=== PATIENT | male | born 1965 | race Caucasian/White ===

== ENCOUNTER 2016-09-25 11:28 | Inpatient (IN) | payer OTHER ==
[2016-09-25 13:02] VITALS: BMI 23.0
--- NOTE | 2016-09-25 15:41 | HP ---
COWS - Scale Resting Pulse: 1= [place] 81-100 Sweatin=Flushed/Facial Moisture Restless Observation: 1= Difficult to Sit Still Pupil Size: 1= Pupils >than Normal Bone or Joint Aches: 2= Severe Diffuse Aches Runny Nose/ Eye Tearin= Nasal Congestion GI Upset > 30mins: 1= Stomach Cramp Tremor Observation: 2= Slight Tremor Visible Yawning Observation: 0= None Anxiety or Irritability: 1=Feels Anxious/Irritable Goose Flesh Skin: 0=Smooth Skin COWS Score: 12 Admission ROS S - HPI Chief Complaint: i need help to stop using drugs Allergies/Adverse Reactions: Allergies Allergy/AdvReac Type Severity Reaction Status Date / Time sulfamethoxazole Allergy Unknown Verified 09/25/16 15:26 [From Bactrim] trimethoprim [From Bactrim] Allergy Unknown Verified 09/25/16 15:26 History of Present Illness: 51 y/o m pt with a h/o heroin dep. and cocaine abuse seeking detox. Exam Limitations: No Limitations - Ebola screening Have you traveled outside of the country in the last 21 days: No Have you had contact with anyone from an Ebola affected area: No Have you been sick,other than usual withdrawal symptoms: No Do you have a fever: No - Review of Systems Constitutional: Malaise, Night Sweats, Changes in sleep EENT: reports: Blurred Vision, Other (os lateral redness , itch) Respiratory: reports: No Symptoms reported Cardiac: reports: No Symptoms Reported GI: reports: Nausea, Abdominal cramping : reports: No Symptoms Reported Musculoskeletal: reports: Back Pain, Muscle Pain Integumentary: reports: No Symptoms Reported Neuro: reports: Numbness (hands osiel) Endocrine: reports: No Symptoms Reported Hematology: reports: No Symptoms Reported Psychiatric: reports: Agitated, Anxious, Depressed Other Systems: Reviewed and Negative Patient History - Patient Medical History Hx Anemia: No Hx Asthma: Yes (Pt is on MDI.) Hx Chronic Obstructive Pulmonary Disease (COPD): No Hx Cancer: No Hx Cardiac Disorders: No Hx Congestive Heart Failure: No Hx Hypertension: No Hx Hypercholesterolemia: No Hx Pacemaker: No HX Cerebrovascular Accident: No Hx Seizures: No Hx Dementia: No Hx Diabetes: No Hx Gastrointestinal Disorders: No Hx Liver Disease: No Hx Genitourinary Disorders: No Hx Sexually Transmitted Disorders: No Hx Renal Disease (ESRD): No Hx Thyroid Disease: No Hx Human Immunodeficiency Virus (HIV): Yes (2000) Hx Hepatitis C: No Hx Depression: Yes Hx Suicide Attempt: No Hx Bipolar Disorder: No Hx Schizophrenia: No - Patient Surgical History Past Surgical History: No - PPD History Previous Implant?: Yes Documented Results: Negative w/o proof Implanted On Prior R Admission?: No PPD to be Administered?: Yes - Reproductive History Patient is a Female of Child Bearing Age (11 -55 yrs old): No - Smoking Cessation Smoking history: Current every day smoker Have you smoked in the past 12 months: Yes Aproximately how many cigarettes per day: 10 Hx Chewing Tobacco Use: No Initiated information on smoking cessation: Yes 'Breaking Loose' booklet given: 09/25/16 - Substance & Tx. History Hx Alcohol Use: No Hx Substance Use: Yes Substance Use Type: Cocaine, Heroin Hx Substance Use Treatment: Yes - Substances Abused Heroin Route: Injection Frequency: Daily Amount used: 20 bags Age of first use: 15 Date of Last Use: 09/24/16 Cocaine Route: Injection Frequency: 1-2 times per week Amount used: 1 bag Age of first use: 15 Date of Last Use: 09/24/16 Family Disease History - Family Disease History Family Disease History: Other: Father (cva) Admission Physical Exam BHS - Vital Signs Vital Signs: Vital Signs - 24 hr 09/25/16 13:01 Temperature 97.5 F L Pulse Rate 72 Respiratory 18 Rate Blood Pressure 101/51 51 y/o m pt aox3 in nad ambulating anxious but cooperative with exam. - Physical General Appearance: Yes: No Apparent Distress, Appropriately Dressed, Irritable , Sweating, Anxious HEENTM: Yes: EOMI, Hearing grossly Normal, Normocephalic, Normal Voice, JULIANNE, Other (od with left lat redness) Respiratory: Yes: Chest Non-Tender, Lungs Clear, Normal Breath Sounds, No Respiratory Distress Neck: Yes: No masses,lesions,Nodules, Supple, Trachea in good position Breast: Yes: Breast Exam Deferred Cardiology: Yes: Within Normal Limits Abdominal: Yes: Non Tender, Flat, Increased Bowel Sounds Genitourinary: Yes: Frequency Back: Yes: Decreased Range of Motion Musculoskeletal: Yes: Back pain Extremities: Yes: Within Normal Limits Neurological: Yes: ethylbenzene oxidizer II-XII NML intact, Fully Oriented, Alert, Motor Strength 5/5, Normal Response Integumentary: Yes: Diaphoresis Lymphatic: Yes: Within Normal Limits - Diagnostic (1) Opioid dependence with uncomplicated intoxication Current Visit: Yes Status: Chronic (2) Cocaine abuse Current Visit: Yes Status: Chronic (3) Nicotine dependence Current Visit: Yes Status: Chronic Qualifiers: Nicotine product type: cigarettes Substance use status: uncomplicated Qualified Code(s): F17.210 - Nicotine dependence, cigarettes, uncomplicated (4) Conjunctivitis Current Visit: Yes Status: Acute Qualifiers: Conjunctivitis type: acute Acute conjunctivitis type: viral Laterality: left Qualified Code(s): B30.9 - Viral conjunctivitis, unspecified Cleared for Admission S - Detox or Rehab [facility] Level of Care: Medically Managed Detox Regimen/Protocol: Methadone [facility] Breath Alcohol Content Breath Alcohol Content: 0 Urine Drug Screen - Results Drug Screen Negative: No Urine Drug Screen Results: OTF-Cocaine, OPI-Opiates
[2016-09-25] MEDS ORDERED: diphenhydrAMINE HCL 50 MG CAPSULE PO PRN (15:58)
[2016-09-25] MEDS ORDERED: MAGNESIUM HYDROX 2400MG/30ML ORAL SUSPENSION 30 ML CUP PO PRN (15:58)
[2016-09-25] MEDS ORDERED: guaiFENesin/D-METHORPHAN HB 10 ML UNIT-DOSE CUPS PO PRN (15:58)
[2016-09-25] MEDS ORDERED: hydrOXYzine PAMOATE 25 MG CAPSULE (FP) PO PRN (15:58)
[2016-09-25] MEDS ORDERED: ACETAMINOPHEN 325 MG TABLET (FP) PO PRN (15:58)
[2016-09-25] MEDS ORDERED: MENTHOL/PHENOL 1 EACH UD MM PRN (15:58)
[2016-09-25] MEDS ORDERED: IBUPROFEN 400 MG TABLET (FP) PO PRN (15:58)
[2016-09-25] MEDS ORDERED: LOPERAMIDE HCL 2 MG CAPSULE PO PRN (15:58)
[2016-09-25] MEDS ORDERED: P-EPHED 60MG/TRIPROLIDI 2.5MG TABLET PO PRN (15:58)
[2016-09-25] MEDS ORDERED: MAGNESIUM CITRATE 300 ML BOTTLE PO PRN (15:58)
[2016-09-25] MEDS ORDERED: MAG HYDROX/AL HYDROX/SIMETH 30 ML UNIT-DOSE CUP PO PRN (15:58)
[2016-09-25] MEDS ORDERED: SULFACETAMIDE SODIUM 10% OPHTHALMIC DROPS 15 ML BOTTLE OS SCH (16:15)
[2016-09-25] MEDS ORDERED: METHADONE HCL 10 MG TABLET (FOR DETOX USE ONLY) PO ONE ×2 (17:00→23:00)
[2016-09-25] MEDS: NEOMYCIN/POLYMYX/HC OPHTHALMIC SUSPENSION 7.5 ML BOTTLE OS SCH ×2 (17:25→22:25)
[2016-09-25] MEDS: diazePAM 5 MG TABLET PO PRN (17:25)
[2016-09-25] MEDS: THIAMINE HCL 100 MG TABLET (FP) PO SCH (22:24)
[2016-09-25 23:37] LABS: URINE APPEARANCE CLEAR; URINE BILIRUBIN NEGATIVE (NEGATIVE); URINE BLOOD NEGATIVE (NEGATIVE); URINE COLOR AMBER; URINE GLUCOSE (UA) NEGATIVE (NEGATIVE); URINE KETONE NEGATIVE (NEGATIVE); URINE LEUK ESTERASE NEGATIVE (NEGATIVE); URINE NITRITE POSITIVE (NEGATIVE); URINE PROTEIN NEGATIVE (NEGATIVE); URINE UROBILINOGEN NEGATIVE E.U./dl (0.2-1.0)
[2016-09-25 23:44] LABS: URINE BACTERIA MODERATE /hpf (NONE SEEN); URINE MUCUS RARE; URINE RBC 1 /hpf (0-3); URINE WBC 1 /hpf (3-5)
[2016-09-26] MEDS: NEOMYCIN/POLYMYX/HC OPHTHALMIC SUSPENSION 7.5 ML BOTTLE OS SCH ×3 (05:36→22:30)
--- NOTE | 2016-09-26 09:20 | CONSULT ---
[facility] Psychiatric Consult - Data Date of interview: 09/26/16 Admission source: [facility] Identifying data: Mr Juarez is a 51 years old single male, father of 5 children, unemployed on SSI, domiciled living in [facility] subsidised housing seeking detox treatment for heroin and cocaine Substance Abuse History: - Smoking Cessation. Smoking history: Current every day smoker. Have you smoked in the past 12 months: Yes. Aproximately how many cigarettes per day: 10. Hx Chewing Tobacco Use: No. Initiated information on smoking cessation: Yes. 'Breaking Loose' booklet given: 09/25/16. - Substance & Tx. History. Hx Alcohol Use: No. Hx Substance Use: Yes. Substance Use Type : Cocaine, Heroin. Hx Substance Use Treatment: Yes. - Substances Abused. Heroin. Route: Injection. Frequency: Daily. Amount used: 20 bags. Age of first use: 15. Date of Last Use: 09/24/16. Cocaine. Route: Injection. Frequency: 1-2 times per week. Amount used: 1 bag. Age of first use: 15. Date of Last Use: 09/24/16 Medical History: Significant for Asthma, HIV+ diagnosed in 2000. Smokes 10 cigarettes daily Psychiatric History: Denies history of previous psychiatric treatment. However, reports experiencing difficulty to sleep at present Mental Status Exam - Mental Status Exam Alert and Oriented to: Time, Place, Person Cognitive Function: Fair Patient Appearance: Well Groomed Mood: Hopeful, Euthymic Affect: Appropriate Patient Behavior: Cooperative Speech Pattern: Clear Voice Loudness: Normal Thought Process: Intact, Goal Oriented Thought Disorder: Not Present Hallucinations: Denies Suicidal Ideation: Denies Homicidal Ideation: Denies Insight/Judgement: Poor Sleep: Poorly Appetite: Good Muscle strength/Tone: Normal Gait/Station: Normal Psychiatric Findings - Problem List ([place] 1, 2,3) (1) Substance-induced sleep disorder Current Visit: Yes Status: Acute (2) Opioid dependence with uncomplicated intoxication Current Visit: Yes Status: Chronic (3) Cocaine abuse Current Visit: Yes Status: Chronic (4) Nicotine dependence Current Visit: Yes Status: Chronic Qualifiers: Nicotine product type: cigarettes Substance use status: uncomplicated Qualified Code(s): F17.210 - Nicotine dependence, cigarettes, uncomplicated (5) Asthma Current Visit: Yes Status: Acute (6) HIV (human immunodeficiency virus infection) Current Visit: Yes Status: Acute - Initial Treatment Plan Initial Treatment Plan: Start Ambien 10 mg po HS prn for insomnia. Benefits vs Risks of medication discussed with patient and he agreed to try it
[2016-09-26 09:47] LABS: MCH 27.9 pg (25.7-33.7); MCHC 31.7 g/dl (32.0-35.9); MEAN PLT VOLUME 10.9 fl (7.5-11.1); PLATELET COUNT 114 K/MM3 (134-434); WHITE BLOOD COUNT 5.5 K/mm3 (4.0-10.0)
[2016-09-26] MEDS ORDERED: METHADONE HCL 10 MG TABLET (FOR DETOX USE ONLY) PO ONE (10:00)
[2016-09-26 10:36] LABS: ALBUMIN 3.6 g/dl (3.4-5.0); ALK PHOS 70 U/L (45-117); ANION GAP 11 (8-16); BILIRUBIN,TOTAL 0.4 mg/dL (0.2-1.0); CALCIUM 8.9 mg/dL (8.5-10.1); CO2 27 mmol/L (21-32); CREATININE 0.9 mg/dL (0.7-1.3); GLUCOSE,RANDOM 86 mg/dL (74-106); SGOT/AST 42 U/L (15-37); SGPT/ALT 36 U/L (12-78); TOT PROT 7.4 g/dl (6.4-8.2)
[2016-09-26] MEDS: PRENATAL VITAMINS W/ FOLIC ACID TABLET (FP) PO SCH (10:39)
[2016-09-26] MEDS: diazePAM 5 MG TABLET PO PRN ×2 (10:39→22:32)
[2016-09-26] MEDS: NICOTINE 21 MG/24 HOURS TOPICAL PATCH TD SCH (10:39)
--- NOTE | 2016-09-26 10:43 | PN ---
BHS COWS - Scale Resting Pulse: 0= [place] 80 or Below Sweatin= Chills/Flushing Restless Observation: 3= Extraneous Movement Pupil Size: 2= Moderately Dilated Bone or Joint Aches: 4=Acute Joint/Muscle Pain Runny Nose/ Eye Tearin= Nasal Congestion GI Upset > 30mins: 1= Stomach Cramp Tremor Observation of Outstretched Hands: 2= Slight Tremor Visible Yawning Observation: 2= >3x During Session Anxiety or Irritability: 2=Irritable/Anxious Goose Flesh Skin: 0=Smooth Skin COWS Score: 18 BHS Progress Note (SOAP) Subjective: ANXIETY,SWEATS,TREMORS,CHILLS. Objective: 09/26/16 10:44 Laboratory Last Values WBC 5.5 K/mm3 (4.0-10.0) 09/26/16 06:00 RBC 4.20 M/mm3 (4.00-5.60) 09/26/16 06:00 Hgb 11.7 GM/dL (11.7-16.9) 09/26/16 06:00 Hct 37.0 % (35.4-49) 09/26/16 06:00 MCV 88.0 fl (80-96) 09/26/16 06:00 MCHC 31.7 g/dl (32.0-35.9) L 09/26/16 06:00 RDW 13.0 % (11.9-15.9) 09/26/16 06:00 Plt Count 114 K/MM3 (134-434) L 09/26/16 06:00 MPV 10.9 fl (7.5-11.1) 09/26/16 06:00 Urine Color Nicole 09/25/16 23:20 Urine Appearance Clear 09/25/16 23:20 Urine pH 7.0 (5.0-8.0) 09/25/16 23:20 Ur Specific [place] 1.021 (1.001-1.035) 09/25/16 23:20 Urine Protein Negative (NEGATIVE) 09/25/16 23:20 Urine Glucose (UA) Negative (NEGATIVE) 09/25/16 23:20 Urine Ketones Negative (NEGATIVE) 09/25/16 23:20 Urine Blood Negative (NEGATIVE) 09/25/16 23:20 Urine Nitrite Positive (NEGATIVE) 09/25/16 23:20 Urine Bilirubin Negative (NEGATIVE) 09/25/16 23:20 Urine Urobilinogen Negative E.U./dl (0.2-1.0) 09/25/16 23:20 Ur Leukocyte Esterase Negative (NEGATIVE) 09/25/16 23:20 Urine RBC 1 /hpf (0-3) 09/25/16 23:20 Urine WBC 1 /hpf (3-5) 09/25/16 23:20 Urine Bacteria Moderate /hpf (NONE SEEN) 09/25/16 23:20 Urine Mucus Rare 09/25/16 23:20 Vital Signs Temperature 98.2 F 09/26/16 10:07 Pulse Rate 73 09/26/16 10:07 Respiratory Rate 18 09/26/16 10:07 Blood Pressure 112/74 09/26/16 10:07 O2 Sat by Pulse Oximetry (%) Assessment: 09/26/16 10:44 WITHDRAWAL SX Plan: CONTINUE DETOX
[2016-09-26] MEDS: ZOLPIDEM TARTRATE 10 MG TABLET (PARK CARE ONLY) PO PRN (22:32)
[2016-09-26] MEDS: THIAMINE HCL 100 MG TABLET (FP) PO SCH (22:33)
--- NOTE | 2016-09-26 23:39 | EKG ---
Test Reason : Blood Pressure : / mmHG Vent. Rate : 069 BPM Atrial Rate : 075 BPM P-R Int : 130 ms QRS Dur : 080 ms QT Int : 364 ms P-R-T Axes : 065 -48 051 degrees QTc Int : 390 ms NORMAL SINUS RHYTHM LEFT AXIS DEVIATION ABNORMAL ECG NO PREVIOUS ECGS AVAILABLE Confirmed by JONO RICCI MD ([id number]) on 09/26/2016 11:39:11 PM Referred By: Confirmed By:JONO RICCI MD
[2016-09-27] MEDS: diazePAM 5 MG TABLET PO PRN ×2 (05:46→22:30)
[2016-09-27] MEDS: NEOMYCIN/POLYMYX/HC OPHTHALMIC SUSPENSION 7.5 ML BOTTLE OS SCH ×3 (05:48→22:29)
[2016-09-27] MEDS ORDERED: METHADONE HCL 5 MG TABLET (FOR DETOX USE ONLY) PO ONE (10:00)
[2016-09-27] MEDS: PRENATAL VITAMINS W/ FOLIC ACID TABLET (FP) PO SCH (10:30)
[2016-09-27] MEDS: NICOTINE 21 MG/24 HOURS TOPICAL PATCH TD SCH (10:30)
--- NOTE | 2016-09-27 11:23 | PN ---
[facility] CIWA - CIWA Score Nausea/Vomitin-No Nausea/No Vomiting Muscle Tremors: 4-Moderate,w/Arms Extend Anxiety: 4-Mod. Anxious/Guarded Agitation: 4-Moderately Restless Paroxysmal Sweats: 1-Minimal Palms Moist Orientation: 0-Oriented Tacttile Disturbances: 3-Moderate Itch/Numb/Burn Auditory Disturbances: 0-None Visual Disturbances: 0-None Headache: 0-None Present CIWA-Ar Total Score: 16 BHS Progress Note (SOAP) Subjective: ANXIETY,SWEATS,IRRITABILITY,AGITATION,INTERMITTENT SLEEP. Objective: 09/27/16 11:23 Vital Signs Temperature 96.8 F L 09/27/16 09:41 Pulse Rate 74 09/27/16 09:41 Respiratory Rate 18 09/27/16 09:41 Blood Pressure 128/75 09/27/16 09:41 O2 Sat by Pulse Oximetry (%) Laboratory Last Values WBC 5.5 K/mm3 (4.0-10.0) 09/26/16 06:00 RBC 4.20 M/mm3 (4.00-5.60) 09/26/16 06:00 Hgb 11.7 GM/dL (11.7-16.9) 09/26/16 06:00 Hct 37.0 % (35.4-49) 09/26/16 06:00 MCV 88.0 fl (80-96) 09/26/16 06:00 MCHC 31.7 g/dl (32.0-35.9) L 09/26/16 06:00 RDW 13.0 % (11.9-15.9) 09/26/16 06:00 Plt Count 114 K/MM3 (134-434) L 09/26/16 06:00 MPV 10.9 fl (7.5-11.1) 09/26/16 06:00 Sodium 139 mmol/L (136-145) 09/26/16 06:00 Potassium 4.3 mmol/L (3.5-5.1) 09/26/16 06:00 Chloride 101 mmol/L (98-107) 09/26/16 06:00 Carbon Dioxide 27 mmol/L (21-32) 09/26/16 06:00 Anion Gap 11 (8-16) 09/26/16 06:00 BUN 9 mg/dL (7-18) 09/26/16 06:00 Creatinine 0.9 mg/dL (0.7-1.3) 09/26/16 06:00 Creat Clearance w eGFR > 60 (>60) 09/26/16 06:00 Random Glucose 86 mg/dL (74-106) 09/26/16 06:00 Calcium 8.9 mg/dL (8.5-10.1) 09/26/16 06:00 Total Bilirubin 0.4 mg/dL (0.2-1.0) 09/26/16 06:00 AST 42 U/L (15-37) H 09/26/16 06:00 ALT 36 U/L (12-78) 09/26/16 06:00 Alkaline Phosphatase 70 U/L (45-117) 09/26/16 06:00 Total Protein 7.4 g/dl (6.4-8.2) 09/26/16 06:00 Albumin 3.6 g/dl (3.4-5.0) 09/26/16 06:00 Urine Color Nicole 09/25/16 23:20 Urine Appearance Clear 09/25/16 23:20 Urine pH 7.0 (5.0-8.0) 09/25/16 23:20 Ur Specific [place] 1.021 (1.001-1.035) 09/25/16 23:20 Urine Protein Negative (NEGATIVE) 09/25/16 23:20 Urine Glucose (UA) Negative (NEGATIVE) 09/25/16 23:20 Urine Ketones Negative (NEGATIVE) 09/25/16 23:20 Urine Blood Negative (NEGATIVE) 09/25/16 23:20 Urine Nitrite Positive (NEGATIVE) 09/25/16 23:20 Urine Bilirubin Negative (NEGATIVE) 09/25/16 23:20 Urine Urobilinogen Negative E.U./dl (0.2-1.0) 09/25/16 23:20 Ur Leukocyte Esterase Negative (NEGATIVE) 09/25/16 23:20 Urine RBC 1 /hpf (0-3) 09/25/16 23:20 Urine WBC 1 /hpf (3-5) 09/25/16 23:20 Urine Bacteria Moderate /hpf (NONE SEEN) 09/25/16 23:20 Urine Mucus Rare 09/25/16 23:20 RPR Titer Nonreactive (NONREACTIVE) 09/26/16 06:00 Assessment: 09/27/16 11:23 WITHDRAWAL SX Plan: CONTINUE DETOX
[2016-09-27] MEDS ORDERED: ALBUTEROL SO4 6.7 GM HFA INHALER IH PRN (13:25)
[2016-09-27] MEDS: ZOLPIDEM TARTRATE 10 MG TABLET (PARK CARE ONLY) PO PRN (22:30)
[2016-09-27] MEDS: THIAMINE HCL 100 MG TABLET (FP) PO SCH (22:30)
[2016-09-28] MEDS: diazePAM 5 MG TABLET PO PRN (06:00)
[2016-09-28] MEDS: NEOMYCIN/POLYMYX/HC OPHTHALMIC SUSPENSION 7.5 ML BOTTLE OS SCH (06:01)
[2016-09-28 06:36] VITALS: BP 112/74; PULSE 81; TEMP 96.5
[2016-09-28] MEDS ORDERED: METHADONE HCL 5 MG TABLET (FOR DETOX USE ONLY) PO ONE (10:00)
[2016-09-28] MEDS ORDERED: METHADONE HCL 10 MG TABLET (FOR DETOX USE ONLY) PO ONE (10:00)
--- NOTE | 2016-09-28 12:09 | DS ---
[facility] Detox Discharge Summary Admission Date: 09/25/16 Discharge Date: 09/28/16 - History Present History: Cocaine Dependence, Opioid Dependence Additional Comments: ADVISED PATIENT TO FOLLOW-UP WITH [facility] FOR GENERAL MEDICAL ASSESSMENT. Pertinent Past History: Asthma, HIV +, Depression. - Physical Exam Results Vital Signs: Vital Signs Temperature 96.5 F L 09/28/16 06:36 Pulse Rate 81 09/28/16 06:36 Respiratory Rate 18 09/28/16 06:36 Blood Pressure 112/74 09/28/16 06:36 O2 Sat by Pulse Oximetry (%) Pertinent Admission Physical Exam Findings: WITHDRAWAL SYMPTOMS. Laboratory Last Values WBC 5.5 K/mm3 (4.0-10.0) 09/26/16 06:00 RBC 4.20 M/mm3 (4.00-5.60) 09/26/16 06:00 Hgb 11.7 GM/dL (11.7-16.9) 09/26/16 06:00 Hct 37.0 % (35.4-49) 09/26/16 06:00 MCV 88.0 fl (80-96) 09/26/16 06:00 MCHC 31.7 g/dl (32.0-35.9) L 09/26/16 06:00 RDW 13.0 % (11.9-15.9) 09/26/16 06:00 Plt Count 114 K/MM3 (134-434) L 09/26/16 06:00 MPV 10.9 fl (7.5-11.1) 09/26/16 06:00 Sodium 139 mmol/L (136-145) 09/26/16 06:00 Potassium 4.3 mmol/L (3.5-5.1) 09/26/16 06:00 Chloride 101 mmol/L (98-107) 09/26/16 06:00 Carbon Dioxide 27 mmol/L (21-32) 09/26/16 06:00 Anion Gap 11 (8-16) 09/26/16 06:00 BUN 9 mg/dL (7-18) 09/26/16 06:00 Creatinine 0.9 mg/dL (0.7-1.3) 09/26/16 06:00 Creat Clearance w eGFR > 60 (>60) 09/26/16 06:00 Random Glucose 86 mg/dL (74-106) 09/26/16 06:00 Calcium 8.9 mg/dL (8.5-10.1) 09/26/16 06:00 Total Bilirubin 0.4 mg/dL (0.2-1.0) 09/26/16 06:00 AST 42 U/L (15-37) H 09/26/16 06:00 ALT 36 U/L (12-78) 09/26/16 06:00 Alkaline Phosphatase 70 U/L (45-117) 09/26/16 06:00 Total Protein 7.4 g/dl (6.4-8.2) 09/26/16 06:00 Albumin 3.6 g/dl (3.4-5.0) 09/26/16 06:00 Urine Color Nicole 09/25/16 23:20 Urine Appearance Clear 09/25/16 23:20 Urine pH 7.0 (5.0-8.0) 09/25/16 23:20 Ur Specific [place] 1.021 (1.001-1.035) 09/25/16 23:20 Urine Protein Negative (NEGATIVE) 09/25/16 23:20 Urine Glucose (UA) Negative (NEGATIVE) 09/25/16 23:20 Urine Ketones Negative (NEGATIVE) 09/25/16 23:20 Urine Blood Negative (NEGATIVE) 09/25/16 23:20 Urine Nitrite Positive (NEGATIVE) 09/25/16 23:20 Urine Bilirubin Negative (NEGATIVE) 09/25/16 23:20 Urine Urobilinogen Negative E.U./dl (0.2-1.0) 09/25/16 23:20 Ur Leukocyte Esterase Negative (NEGATIVE) 09/25/16 23:20 Urine RBC 1 /hpf (0-3) 09/25/16 23:20 Urine WBC 1 /hpf (3-5) 09/25/16 23:20 Urine Bacteria Moderate /hpf (NONE SEEN) 09/25/16 23:20 Urine Mucus Rare 09/25/16 23:20 RPR Titer Nonreactive (NONREACTIVE) 09/26/16 06:00 LABS NOTED. - Treatment Hospital Course: Detoxed Safely - Medication Discharge Medications: Ambulatory Orders Albuterol Sulfate Inhaler - [Ventolin Hfa Inhaler -] 2 inh PO Q4H PRN 09/25/16 - Diagnosis (1) Asthma Status: Chronic Qualifiers: Asthma severity: mild intermittent Asthma complication type: uncomplicated Qualified Code(s): J45.20 - Mild intermittent asthma, uncomplicated (2) Conjunctivitis Status: Acute Qualifiers: Conjunctivitis type: acute Acute conjunctivitis type: viral Laterality: left Qualified Code(s): B30.9 - Viral conjunctivitis, unspecified (3) HIV (human immunodeficiency virus infection) Status: Chronic (4) Substance-induced sleep disorder Status: Acute (5) Cocaine abuse Status: Acute (6) Nicotine dependence Status: Chronic Qualifiers: Nicotine product type: cigarettes Substance use status: uncomplicated Qualified Code(s): F17.210 - Nicotine dependence, cigarettes, uncomplicated (7) Opioid dependence with uncomplicated intoxication Status: Acute - AMA Did Patient Leave Against Medical Advice: Yes (PT. HAD PERSONAL MATTER TO ATTEND TO AND COULD NOT STAY TO COMPLETE DETOX.)
[2016-09-29] MEDS ORDERED: METHADONE HCL 5 MG TABLET (FOR DETOX USE ONLY) PO ONE (06:00)
[2016-09-29] MEDS ORDERED: METHADONE HCL 10 MG TABLET (FOR DETOX USE ONLY) PO ONE (10:00)
[2016-09-30] MEDS ORDERED: METHADONE HCL 5 MG TABLET (FOR DETOX USE ONLY) PO ONE (06:00)
== END 2016-09-28 08:57 | disposition left against medical advice (07) | DRG 770 ==
LOC: YASAS 11:28 → Y3N 16:37
PROVIDERS: ADMIT Internal Medicine; ATTEND Internal Medicine
PROC: HZ2ZZZZ Detoxification Services for Substance Abuse Treatment (ICD-10-PCS; principal; 2016-09-28)
DX: F11.20 Opioid dependence, uncomplicated (principal); F14.10 Cocaine abuse, uncomplicated; F17.210 Nicotine dependence, cigarettes, uncomplicated; F19.280 Other psychoactive substance dependence with psychoactive substance-induced anxiety disorder; J45.20 Mild intermittent asthma, uncomplicated; B30.9 Viral conjunctivitis, unspecified; Z21 Asymptomatic human immunodeficiency virus [HIV] infection status
CPT/HCPCS: 36415; 80053; 81003; 81015; 85027; 86593; 93005; 93010

== ENCOUNTER 2017-02-09 08:24 | Inpatient (IN) | payer OTHER ==
--- NOTE | 2017-02-09 12:43 | HP ---
COWS - Scale Resting Pulse: 0= [place] 80 or Below Sweatin=Flushed/Facial Moisture Restless Observation: 1= Difficult to Sit Still Pupil Size: 0= Normal to Room Light Bone or Joint Aches: 2= Severe Diffuse Aches Runny Nose/ Eye Tearin= Runny Nose/Eyes GI Upset > 30mins: 1= Stomach Cramp Tremor Observation: 2= Slight Tremor Visible Yawning Observation: 2= >3x During Session Anxiety or Irritability: 2=Irritable/Anxious Goose Flesh Skin: 3=Piloerection COWS Score: 17 Admission ROS S - HPI Chief Complaint: I want to change and start new. Allergies/Adverse Reactions: Allergies Allergy/AdvReac Type Severity Reaction Status Date / Time sulfamethoxazole Allergy Unknown Verified 02/09/17 11:18 [From Bactrim] trimethoprim [From Bactrim] Allergy Unknown Verified 02/09/17 11:18 History of Present Illness: pt is a 52yr old male with a history of heroin and cocaine dependence seeking detox for treatment. pt also has been HIV+ since 2000 and currently on gynoya and pt brought in his own. pt had a cut to right thumb 4 days ago now he has redness to hand and cut appears to have some drainage. Exam Limitations: No Limitations - Ebola screening Have you traveled outside of the country in the last 21 days: No Have you had contact with anyone from an Ebola affected area: No Have you been sick,other than usual withdrawal symptoms: No - Review of Systems Constitutional: Chills, Diaphoresis, Loss of Appetite, Night Sweats, Changes in sleep, Unintentional Wgt. Loss EENT: reports: Tearing, Nose Congestion Respiratory: reports: No Symptoms reported Cardiac: reports: No Symptoms Reported GI: reports: Constipated, Diarrhea, Poor Appetite, Poor Fluid Intake : reports: No Symptoms Reported Musculoskeletal: reports: Back Pain, Muscle Pain, Other (right hand infection d/ t cut to thumb pt never had this addressed.) Integumentary: reports: Flushing, Sweating Neuro: reports: Tingling, Tremors Endocrine: reports: Excessive Sweating, Flushing, Intolerance to Cold, Intolerance to Heat Hematology: reports: No Symptoms Reported Psychiatric: reports: Judgement Intact, Mood/Affect Appropiate, Orientated x3, Agitated, Anxious Other Systems: Reviewed and Negative Patient History - Patient Medical History Hx Anemia: No Hx Asthma: Yes (Pt is on MDI.) Hx Chronic Obstructive Pulmonary Disease (COPD): No Hx Cancer: No Hx Cardiac Disorders: No Hx Congestive Heart Failure: No Hx Hypertension: No Hx Hypercholesterolemia: No Hx Pacemaker: No HX Cerebrovascular Accident: No Hx Seizures: No Hx Dementia: No Hx Diabetes: No Hx Gastrointestinal Disorders: No Hx Liver Disease: No Hx Genitourinary Disorders: No Hx Sexually Transmitted Disorders: No Hx Renal Disease (ESRD): No Hx Thyroid Disease: No Hx Human Immunodeficiency Virus (HIV): Yes (2000) Hx Hepatitis C: Yes (never been treated) Hx Depression: No Hx Suicide Attempt: No (denies) Hx Bipolar Disorder: No Hx Schizophrenia: No - Patient Surgical History Past Surgical History: No - PPD History Previous Implant?: Yes Documented Results: Negative w/proof Implanted On Prior [facility] Admission?: Yes Date: 09/27/16 Results: 0 MM PPD to be Administered?: No - Reproductive History Patient is a Female of Child Bearing Age (11 -55 yrs old): No - Smoking Cessation Smoking history: Current every day smoker Have you smoked in the past 12 months: Yes Aproximately how many cigarettes per day: 10 Hx Chewing Tobacco Use: No Initiated information on smoking cessation: Yes 'Breaking Loose' booklet given: 02/09/17 - Substance & Tx. History Hx Alcohol Use: No Hx Substance Use: Yes Substance Use Type: Cocaine, Heroin Hx Substance Use Treatment: Yes (last detox 09/2016 at [facility]) - Substances Abused Heroin Route: Injection Frequency: Daily Amount used: 12-13 BAGS Age of first use: 15 Date of Last Use: 02/08/17 Cocaine Route: Injection Frequency: Daily Amount used: 2-3 BAGS Age of first use: 15 Date of Last Use: 02/08/17 Family Disease History - Family Disease History Family Disease History: Other: Father (cva) Admission Physical Exam BHS - Vital Signs Vital Signs: Vital Signs - 24 hr 02/09/17 02/09/17 09:23 09:35 Temperature 97.0 F L 98.3 F Pulse Rate 60 70 Respiratory 16 18 Rate Blood Pressure 100/60 150/97 - Physical General Appearance: Yes: Appropriately Dressed, Moderate Distress, Tremorous, Irritable, Sweating, Anxious HEENTM: Yes: Hearing grossly Normal, Normal Voice, Hearing Decreased, Nasal Congestion Respiratory: Yes: Lungs Clear, Normal Breath Sounds, No Respiratory Distress Neck: Yes: No masses,lesions,Nodules Breast: Yes: Within Normal Limits Cardiology: Yes: Regular Rhythm, Regular Rate, S1, S2 Abdominal: Yes: Within Normal Limits, Normal Bowel Sounds, Soft Genitourinary: Yes: Within Normal Limits Back: Yes: Normal Inspection Musculoskeletal: Yes: full range of Motion, Gait Steady, Joint Stiffness Extremities: Yes: Normal Capillary Refill, Non-Tender, Tremors Neurological: Yes: Fully Oriented, Alert, Normal Response Integumentary: Yes: Track To, Other (cut to right thumb 4 days ago and now area appears infected and redness noted to top of hand. pt denies of any pain at this time.) Lymphatic: Yes: Within Normal Limits - Diagnostic (1) Opioid dependence with uncomplicated intoxication Current Visit: Yes Status: Chronic (2) Asthma Current Visit: Yes Status: Chronic Qualifiers: Asthma severity: mild intermittent Asthma complication type: uncomplicated Qualified Code(s): J45.20 - Mild intermittent asthma, uncomplicated (3) HIV (human immunodeficiency virus infection) Current Visit: Yes Status: Chronic (4) Nicotine dependence Current Visit: Yes Status: Chronic Qualifiers: Nicotine product type: cigarettes Substance use status: uncomplicated Qualified Code(s): F17.210 - Nicotine dependence, cigarettes, uncomplicated (5) Cellulitis of hand Current Visit: Yes Status: Acute Comment: redness/warm to touch to top of hand (6) Cut of finger Current Visit: Yes Status: Acute Comment: open cut with drainage to thumb. pt states he cut his finger with a bottle. BHS Breath Alcohol Content Breath Alcohol Content: 0.129 Urine Drug Screen - Results Drug Screen Negative: No Urine Drug Screen Results: BZO-Benzodiazepines
[2017-02-09] MEDS ORDERED: MAGNESIUM HYDROX 2400MG/30ML ORAL SUSPENSION 30 ML CUP PO PRN (13:02)
[2017-02-09] MEDS ORDERED: ACETAMINOPHEN 325 MG TABLET (FP) PO PRN (13:02)
[2017-02-09] MEDS ORDERED: IBUPROFEN 400 MG TABLET (FP) PO PRN (13:02)
[2017-02-09] MEDS ORDERED: MENTHOL/PHENOL 1 EACH UD MM PRN (13:02)
[2017-02-09] MEDS ORDERED: MAG HYDROX/AL HYDROX/SIMETH 30 ML UNIT-DOSE CUP PO PRN (13:02)
[2017-02-09] MEDS ORDERED: MAGNESIUM CITRATE 300 ML BOTTLE PO PRN (13:02)
[2017-02-09] MEDS ORDERED: P-EPHED 60MG/TRIPROLIDI 2.5MG TABLET PO PRN (13:02)
[2017-02-09] MEDS ORDERED: LOPERAMIDE HCL 2 MG CAPSULE PO PRN (13:02)
[2017-02-09] MEDS ORDERED: diphenhydrAMINE HCL 50 MG CAPSULE PO PRN (13:02)
[2017-02-09] MEDS ORDERED: guaiFENesin/D-METHORPHAN HB 10 ML UNIT-DOSE CUPS PO PRN (13:02)
[2017-02-09] MEDS ORDERED: NICOTINE POLACRILEX 4 MG GUM BUC PRN (13:08)
[2017-02-09] MEDS ORDERED: hydrOXYzine PAMOATE 50 MG CAPSULE (FP) PO PRN (13:08)
[2017-02-09] MEDS ORDERED: ALBUTEROL SO4 6.7 GM HFA INHALER IH PRN (13:23)
[2017-02-09 13:26] VITALS: BMI 20.3
[2017-02-09] MEDS ORDERED: METHADONE HCL 10 MG TABLET (FOR DETOX USE ONLY) PO ONE ×2 (14:09→23:00)
[2017-02-09] MEDS: CEPHALEXIN MONOHYDRATE 500 MG CAPSULE (UD) PO SCH ×2 (15:09→22:33)
[2017-02-09] MEDS: diazePAM 5 MG TABLET PO PRN ×2 (15:09→22:32)
[2017-02-09] MEDS: BACITRACIN 0.9 GM PACKET TP SCH ×2 (15:10→22:33)
[2017-02-09 16:59] LABS: URINE APPEARANCE CLEAR; URINE BILIRUBIN NEGATIVE (NEGATIVE); URINE BLOOD NEGATIVE (NEGATIVE); URINE COLOR YELLOW; URINE GLUCOSE (UA) NEGATIVE (NEGATIVE); URINE KETONE NEGATIVE (NEGATIVE); URINE LEUK ESTERASE NEGATIVE (NEGATIVE); URINE NITRITE NEGATIVE (NEGATIVE); URINE PROTEIN NEGATIVE (NEGATIVE)
[2017-02-09] MEDS: THIAMINE HCL 100 MG TABLET (FP) PO SCH (22:33)
[2017-02-10] MEDS: diazePAM 5 MG TABLET PO PRN ×3 (05:55→22:35)
[2017-02-10] MEDS ORDERED: METHADONE HCL 10 MG TABLET (FOR DETOX USE ONLY) PO ONE (10:00)
[2017-02-10] MEDS: BACITRACIN 0.9 GM PACKET TP SCH ×2 (10:43→22:33)
[2017-02-10] MEDS: CEPHALEXIN MONOHYDRATE 500 MG CAPSULE (UD) PO SCH ×2 (10:44→22:33)
[2017-02-10] MEDS: PRENATAL VITAMINS W/ FOLIC ACID TABLET (FP) PO SCH (10:44)
[2017-02-10] MEDS: PATIENT'S OWN MEDICATION (NON-FORMULARY) (Fluconazole [Fluconazole] 200 MG) PO SCH (10:44)
[2017-02-10] MEDS: NICOTINE 21 MG/24 HOURS TOPICAL PATCH TD SCH (10:49)
[2017-02-10 11:09] LABS: MCH 29.7 pg (25.7-33.7); MEAN CELL VOLUME 89.8 fl (80-96); MEAN PLT VOLUME 9.7 fl (7.5-11.1); PLATELET COUNT 220 K/MM3 (134-434); RDW 15.4 % (11.9-15.9); WHITE BLOOD COUNT 7.4 K/mm3 (4.0-10.0)
[2017-02-10 11:28] LABS: ALBUMIN 3.3 g/dl (3.4-5.0); ALK PHOS 68 U/L (45-117); ANION GAP 7 (8-16); BILIRUBIN,TOTAL 0.8 mg/dL (0.2-1.0); CALCIUM 8.7 mg/dL (8.5-10.1); CO2 31 mmol/L (21-32); CREATININE 0.9 mg/dL (0.7-1.3); GLUCOSE,RANDOM 65 mg/dL (74-106); SGOT/AST 26 U/L (15-37); SGPT/ALT 28 U/L (12-78); TOT PROT 6.9 g/dl (6.4-8.2)
--- NOTE | 2017-02-10 18:45 | EKG ---
Test Reason : Blood Pressure : / mmHG Vent. Rate : 059 BPM Atrial Rate : 059 BPM P-R Int : 122 ms QRS Dur : 084 ms QT Int : 418 ms P-R-T Axes : 073 -36 063 degrees QTc Int : 413 ms SINUS BRADYCARDIA LEFT AXIS DEVIATION ABNORMAL ECG WHEN COMPARED WITH ECG OF 25-SEP-2016 16:30, NO SIGNIFICANT CHANGE WAS FOUND Confirmed by AMY CAN MD ([id number]) on 02/10/2017 6:45:05 PM Referred By: Confirmed By:AMY CAN MD
[2017-02-10] MEDS ORDERED: ONDANSETRON *ODT* 4 MG TABLET SL PRN (20:04)
--- NOTE | 2017-02-10 20:04 | PN ---
S COWS - Scale Resting Pulse: 0= [place] 80 or Below Sweatin= Chills/Flushing Restless Observation: 1= Difficult to Sit Still Pupil Size: 0= Normal to Room Light Bone or Joint Aches: 2= Severe Diffuse Aches Runny Nose/ Eye Tearin= Nasal Congestion GI Upset > 30mins: 3= Vomiting/Diarrhea Tremor Observation of Outstretched Hands: 2= Slight Tremor Visible Yawning Observation: 1= 1-2x During Session Anxiety or Irritability: 2=Irritable/Anxious Goose Flesh Skin: 3=Piloerection COWS Score: 16 S Progress Note (SOAP) Subjective: Sweating, Diarrhea, Vomiting, H/A, Body Aches, Interrupted Sleep. Objective: PT. A & O X 3. NO ACUTE DISTRESS. 02/10/17 20:03 Vital Signs Temperature 98.0 F 02/10/17 18:56 Pulse Rate 68 02/10/17 18:56 Respiratory Rate 18 02/10/17 18:56 Blood Pressure 123/68 02/10/17 18:56 O2 Sat by Pulse Oximetry (%) Laboratory Tests 02/09/17 02/10/17 02/10/17 15:00 06:10 06:10 WBC 7.4 D RBC 4.01 Hgb 11.9 Hct 36.0 MCV 89.8 MCH 29.7 MCHC 33.0 RDW 15.4 D Plt Count 220 D MPV 9.7 D Sodium 141 Potassium 3.6 Chloride 103 Carbon Dioxide 31 Anion Gap 7 L BUN 11 D Creatinine 0.9 Creat Clearance w eGFR > 60 Random Glucose 65 L D Calcium 8.7 Total Bilirubin 0.8 D AST 26 D ALT 28 D Alkaline Phosphatase 68 Total Protein 6.9 Albumin 3.3 L Urine Color Yellow Urine Appearance Clear Urine pH 7.0 Ur Specific [place] 1.020 Urine Protein Negative Urine Glucose (UA) Negative Urine Ketones Negative Urine Blood Negative Urine Nitrite Negative Urine Bilirubin Negative Urine Urobilinogen 2.0 Ur Leukocyte Esterase Negative RPR Titer 02/10/17 06:10 WBC RBC Hgb Hct MCV MCH MCHC RDW Plt Count MPV Sodium Potassium Chloride Carbon Dioxide Anion Gap BUN Creatinine Creat Clearance w eGFR Random Glucose Calcium Total Bilirubin AST ALT Alkaline Phosphatase Total Protein Albumin Urine Color Urine Appearance Urine pH Ur Specific [place] Urine Protein Urine Glucose (UA) Urine Ketones Urine Blood Urine Nitrite Urine Bilirubin Urine Urobilinogen Ur Leukocyte Esterase RPR Titer Nonreactive LABS NOTED. Assessment: 02/10/17 20:03 WITHDRAWAL SYMPTOMS. Plan: CONTINUED DETOX. PRN ZOFRAN FOR VOMITING. PRN IMMODIUM FOR DIARRHEA.
[2017-02-10] MEDS: THIAMINE HCL 100 MG TABLET (FP) PO SCH (22:33)
[2017-02-11] MEDS: diazePAM 5 MG TABLET PO PRN ×3 (05:50→22:18)
[2017-02-11] MEDS ORDERED: METHADONE HCL 5 MG TABLET (FOR DETOX USE ONLY) PO ONE (10:00)
[2017-02-11] MEDS: PATIENT'S OWN MEDICATION (NON-FORMULARY) (Fluconazole [Fluconazole] 200 MG) PO SCH (10:20)
[2017-02-11] MEDS: PRENATAL VITAMINS W/ FOLIC ACID TABLET (FP) PO SCH (10:21)
[2017-02-11] MEDS: CEPHALEXIN MONOHYDRATE 500 MG CAPSULE (UD) PO SCH ×2 (10:21→22:16)
[2017-02-11] MEDS: NICOTINE 21 MG/24 HOURS TOPICAL PATCH TD SCH (10:21)
[2017-02-11] MEDS: BACITRACIN 0.9 GM PACKET TP SCH ×2 (10:22→22:16)
--- NOTE | 2017-02-11 15:42 | PN ---
[facility] COWS - Scale Resting Pulse: 1= [place] 81-100 Sweatin= Chills/Flushing Restless Observation: 3= Extraneous Movement Pupil Size: 0= Normal to Room Light Bone or Joint Aches: 2= Severe Diffuse Aches Runny Nose/ Eye Tearin= Runny Nose/Eyes GI Upset > 30mins: 1= Stomach Cramp Tremor Observation of Outstretched Hands: 2= Slight Tremor Visible Yawning Observation: 1= 1-2x During Session Anxiety or Irritability: 2=Irritable/Anxious Goose Flesh Skin: 0=Smooth Skin COWS Score: 15 [facility] Progress Note (SOAP) Subjective: Anxious, irritable, restless, interrupted sleep Objective: 02/11/17 15:41 Last Vital Signs Temp Pulse Resp BP Pulse Ox 97.7 F 85 18 126/76 02/11/17 13:45 02/11/17 13:45 02/11/17 13:45 02/11/17 13:45 Laboratory Tests 02/09/17 02/10/17 02/10/17 15:00 06:10 06:10 WBC 7.4 D RBC 4.01 Hgb 11.9 Hct 36.0 MCV 89.8 MCH 29.7 MCHC 33.0 RDW 15.4 D Plt Count 220 D MPV 9.7 D Sodium 141 Potassium 3.6 Chloride 103 Carbon Dioxide 31 Anion Gap 7 L BUN 11 D Creatinine 0.9 Creat Clearance w eGFR > 60 Random Glucose 65 L D Calcium 8.7 Total Bilirubin 0.8 D AST 26 D ALT 28 D Alkaline Phosphatase 68 Total Protein 6.9 Albumin 3.3 L Urine Color Yellow Urine Appearance Clear Urine pH 7.0 Ur Specific [place] 1.020 Urine Protein Negative Urine Glucose (UA) Negative Urine Ketones Negative Urine Blood Negative Urine Nitrite Negative Urine Bilirubin Negative Urine Urobilinogen 2.0 Ur Leukocyte Esterase Negative RPR Titer 02/10/17 06:10 WBC RBC Hgb Hct MCV MCH MCHC RDW Plt Count MPV Sodium Potassium Chloride Carbon Dioxide Anion Gap BUN Creatinine Creat Clearance w eGFR Random Glucose Calcium Total Bilirubin AST ALT Alkaline Phosphatase Total Protein Albumin Urine Color Urine Appearance Urine pH Ur Specific [place] Urine Protein Urine Glucose (UA) Urine Ketones Urine Blood Urine Nitrite Urine Bilirubin Urine Urobilinogen Ur Leukocyte Esterase RPR Titer Nonreactive Labs noted Assessment: 02/11/17 15:42 Withdrawal symptoms Plan: Continue detox
[2017-02-11] MEDS: THIAMINE HCL 100 MG TABLET (FP) PO SCH (22:16)
[2017-02-12] MEDS: diazePAM 5 MG TABLET PO PRN (05:57)
[2017-02-12 09:38] VITALS: BP 110/73; PULSE 83; TEMP 97.4
[2017-02-12] MEDS ORDERED: METHADONE HCL 5 MG TABLET (FOR DETOX USE ONLY) PO ONE (10:00)
--- NOTE | 2017-02-12 10:37 | DS ---
[facility] Detox Discharge Summary Admission Date: 02/09/17 Discharge Date: 02/12/17 - History Present History: Opioid Dependence Pertinent Past History: Asthma AIDS - Physical Exam Results Vital Signs: Vital Signs Temperature 97.4 F L 02/12/17 09:36 Pulse Rate 83 02/12/17 09:36 Respiratory Rate 18 02/12/17 09:36 Blood Pressure 110/73 02/12/17 09:36 O2 Sat by Pulse Oximetry (%) Pertinent Admission Physical Exam Findings: Withdrawal sx. Laboratory Last Values WBC 7.4 K/mm3 (4.0-10.0) D 02/10/17 06:10 RBC 4.01 M/mm3 (4.00-5.60) 02/10/17 06:10 Hgb 11.9 GM/dL (11.7-16.9) 02/10/17 06:10 Hct 36.0 % (35.4-49) 02/10/17 06:10 MCV 89.8 fl (80-96) 02/10/17 06:10 MCH 29.7 pg (25.7-33.7) 02/10/17 06:10 MCHC 33.0 g/dl (32.0-35.9) 02/10/17 06:10 RDW 15.4 % (11.9-15.9) D 02/10/17 06:10 Plt Count 220 K/MM3 (134-434) D 02/10/17 06:10 MPV 9.7 fl (7.5-11.1) D 02/10/17 06:10 Sodium 141 mmol/L (136-145) 02/10/17 06:10 Potassium 3.6 mmol/L (3.5-5.1) 02/10/17 06:10 Chloride 103 mmol/L (98-107) 02/10/17 06:10 Carbon Dioxide 31 mmol/L (21-32) 02/10/17 06:10 Anion Gap 7 (8-16) L 02/10/17 06:10 BUN 11 mg/dL (7-18) D 02/10/17 06:10 Creatinine 0.9 mg/dL (0.7-1.3) 02/10/17 06:10 Creat Clearance w eGFR > 60 (>60) 02/10/17 06:10 Random Glucose 65 mg/dL (74-106) L D 02/10/17 06:10 Calcium 8.7 mg/dL (8.5-10.1) 02/10/17 06:10 Total Bilirubin 0.8 mg/dL (0.2-1.0) D 02/10/17 06:10 AST 26 U/L (15-37) D 02/10/17 06:10 ALT 28 U/L (12-78) D 02/10/17 06:10 Alkaline Phosphatase 68 U/L (45-117) 02/10/17 06:10 Total Protein 6.9 g/dl (6.4-8.2) 02/10/17 06:10 Albumin 3.3 g/dl (3.4-5.0) L 02/10/17 06:10 Urine Color Yellow 02/09/17 15:00 Urine Appearance Clear 02/09/17 15:00 Urine pH 7.0 (5.0-8.0) 02/09/17 15:00 Ur Specific [place] 1.020 (1.005-1.025) 02/09/17 15:00 Urine Protein Negative (NEGATIVE) 02/09/17 15:00 Urine Glucose (UA) Negative (NEGATIVE) 02/09/17 15:00 Urine Ketones Negative (NEGATIVE) 02/09/17 15:00 Urine Blood Negative (NEGATIVE) 02/09/17 15:00 Urine Nitrite Negative (NEGATIVE) 02/09/17 15:00 Urine Bilirubin Negative (NEGATIVE) 02/09/17 15:00 Urine Urobilinogen 2.0 mg/dL (0.2-1.0) 02/09/17 15:00 Ur Leukocyte Esterase Negative (NEGATIVE) 02/09/17 15:00 RPR Titer Nonreactive (NONREACTIVE) 02/10/17 06:10 labs noted - Treatment Patient has Accepted a Rehab Referral to: [facility] - Medication Discharge Medications: Ambulatory Orders Albuterol Sulfate Inhaler - [Ventolin Hfa Inhaler -] 2 inh PO Q4H PRN 09/25/16 Clarithromycin [Biaxin -] 250 mg PO BID 02/09/17 Elviteg/Cristal/Emtric/Tenofo Ala [Genvoya Tablet] 1 each PO DAILY 02/09/17 Fluconazole 200 mg PO DAILY 02/09/17 - Diagnosis (1) Asthma Current Visit: Yes Status: Chronic Qualifiers: Asthma severity: mild intermittent Asthma complication type: uncomplicated Qualified Code(s): J45.20 - Mild intermittent asthma, uncomplicated (2) Nicotine dependence Current Visit: Yes Status: Chronic Qualifiers: Nicotine product type: cigarettes Substance use status: uncomplicated Qualified Code(s): F17.210 - Nicotine dependence, cigarettes, uncomplicated (3) Opioid dependence with uncomplicated intoxication Current Visit: Yes Status: Chronic - AMA Did Patient Leave Against Medical Advice: Yes
[2017-02-12] MEDS: BACITRACIN 0.9 GM PACKET TP SCH (11:27)
[2017-02-12] MEDS: NICOTINE 21 MG/24 HOURS TOPICAL PATCH TD SCH (11:28)
[2017-02-12] MEDS: CEPHALEXIN MONOHYDRATE 500 MG CAPSULE (UD) PO SCH (11:28)
[2017-02-12] MEDS: PRENATAL VITAMINS W/ FOLIC ACID TABLET (FP) PO SCH (11:28)
[2017-02-12] MEDS: PATIENT'S OWN MEDICATION (NON-FORMULARY) (Fluconazole [Fluconazole] 200 MG) PO SCH (11:28)
[2017-02-13] MEDS ORDERED: METHADONE HCL 10 MG TABLET (FOR DETOX USE ONLY) PO ONE (10:00)
[2017-02-14] MEDS ORDERED: METHADONE HCL 5 MG TABLET (FOR DETOX USE ONLY) PO ONE (06:00)
== END 2017-02-12 09:10 | disposition left against medical advice (07) | DRG 770 ==
LOC: YASAS 08:24 → Y3N 13:03
PROVIDERS: ADMIT Internal Medicine; ATTEND Internal Medicine
PROC: HZ2ZZZZ Detoxification Services for Substance Abuse Treatment (ICD-10-PCS; principal; 2017-02-09)
DX: F11.23 Opioid dependence with withdrawal (principal); F17.210 Nicotine dependence, cigarettes, uncomplicated; B18.2 Chronic viral hepatitis C; J45.20 Mild intermittent asthma, uncomplicated; Z21 Asymptomatic human immunodeficiency virus [HIV] infection status; L03.113 Cellulitis of right upper limb; S61.011D Laceration without foreign body of right thumb without damage to nail, subsequent encounter; W25.XXXD Contact with sharp glass, subsequent encounter; Y92.9 Unspecified place or not applicable; Z88.1 Allergy status to other antibiotic agents; Z88.2 Allergy status to sulfonamides
CPT/HCPCS: 36415; 80053; 81003; 85027; 86593; 93005; 93010

== ENCOUNTER 2022-01-17 22:56 | Inpatient (IN) | payer OTHER ==
[2022-01-17] MEDS ORDERED: VANCOMYCIN 1 GM in D5W (PRE-DOCKED) 1,000 MG/250 ML IVPB ONE (23:50)
[2022-01-17] MEDS ORDERED: SODIUM CHLORIDE 0.9% 500 ML INFUS.BAG IV ONE (23:50)
[2022-01-18] MEDS ORDERED: VANCOMYCIN/WATER FOR INJ (PEG) 1,000 MG/200 ML BAG IVPB ONE ×2 (00:21→11:03)
[2022-01-18 01:12] LABS: INR 1.12 (0.83-1.09); PROTHROMBIN TIME (PATIENT) 12.9 SEC (9.7-13.0)
[2022-01-18 01:14] LABS: HEMATOCRIT 29.8 % (35.4-49); HEMOGLOBIN 9.8 GM/dL (11.7-16.9); MCH 26.9 pg (25.7-33.7); MCHC 32.8 g/dl (32.0-35.9); MEAN CELL VOLUME 82.1 fl (80-96); MEAN PLT VOLUME 8.5 fl (7.5-11.1); PLATELET COUNT 173 10^3/uL (134-434); RBC 3.63 M/mm3 (4.00-5.60); RDW 14.5 % (11.9-15.9); WHITE BLOOD COUNT 5.8 K/mm3 (4.0-10.0)
[2022-01-18 01:15] LABS: ACTIVATED PTT 29.8 SECONDS (25.2-36.5)
[2022-01-18 01:18] LABS: CALCIUM 8.1 mg/dL (8.5-10.1)
[2022-01-18 01:19] LABS: ALBUMIN 2.5 g/dl (3.4-5.0)
[2022-01-18 01:28] LABS: BILIRUBIN,TOTAL 0.3 mg/dL (0.2-1); CREATININE 1.2 mg/dL (0.55-1.3); TOT PROT 7.9 g/dl (6.4-8.2)
[2022-01-18 02:18] LABS: ANISOCYTOSIS 2+; MACROCYTOSIS 0; OVALOCYTE 2+; TEAR DROP CELLS 2+
[2022-01-18] MEDS ORDERED: VANCOMYCIN/WATER FOR INJ (PEG) 1,000 MG/200 ML BAG IVPB SCH ×3 (03:15→16:56)
[2022-01-18 06:30] LABS: MAGNESIUM 1.8 mg/dL (1.8-2.4)
[2022-01-18 06:34] LABS: PHOSPHOROUS 2.8 mg/dL (2.5-4.9)
[2022-01-18] MEDS ORDERED: REMDESIVIR 200 MG in SODIUM CHLORIDE 250 ML IVPB ONE (07:30)
[2022-01-18 08:43] LABS: RETICULOCYTES 0.84 % (0.5-1.5)
[2022-01-18] MEDS ORDERED: ENOXAPARIN NA (PORCINE) 40 MG/0.4 ML DISP.SYRIN SQ SCH (10:00)
[2022-01-18] MEDS ORDERED: NICOTINE 14 MG/24 HOURS TOPICAL PATCH TD SCH (10:00)
[2022-01-18] MEDS ORDERED: VANCOMYCIN 1 GM in D5W (PRE-DOCKED) 1,000 MG/250 ML IVPB ONE ×2 (10:00→22:00)
[2022-01-18] MEDS ORDERED: methaDONE HCL 10 MG TABLET PO SCH (13:15)
[2022-01-18] MEDS ORDERED: PIPERACILLIN/TAZOB 3.375 GM 3.375 GM in DEXTROSE 5%-WATER - 50 ML IVPB SCH (13:30)
[2022-01-18] MEDS ORDERED: methaDONE HCL 10 MG TABLET ONE (13:31)
[2022-01-18] MEDS ORDERED: PIPERACILLIN/TAZOBACTAM 3.375 GM VIAL IVPB ONE (15:10)
[2022-01-18] MEDS ORDERED: DEXTROSE 5%-WATER - 50 ML IVPB ONE (15:10)
[2022-01-18] MEDS ORDERED: VANCOMYCIN 1,000 MG in DEXTROSE 5%-WATER - 250 ML IVPB SCH (16:00)
[2022-01-18] MEDS ORDERED: LORazepam 2 MG/ML SDV VIAL IVPUSH PRN (16:38)
[2022-01-18 18:21] VITALS: BP 125/76; PULSE 64; RESP 18; TEMP 97.5; BMI 21.2
[2022-01-18] MEDS ORDERED: methaDONE HCL 10 MG TABLET PO ONE (20:00)
[2022-01-19] MEDS ORDERED: PIPERACILLIN/TAZOB 3.375 GM 3.375 GM in DEXTROSE 5%-WATER - 50 ML IVPB SCH (02:00)
[2022-01-19] MEDS ORDERED: CEFEPIME 1 GM in DEXTROSE 5%-WATER 1 GM/100 ML BAG IVPB SCH (02:00)
[2022-01-19] MEDS ORDERED: VANCOMYCIN/WATER FOR INJ (PEG) 1,000 MG/200 ML BAG IVPB SCH (04:00)
[2022-01-19] MEDS ORDERED: REMDESIVIR 100 MG in SODIUM CHLORIDE 250 ML IVPB SCH (10:00)
== END 2022-01-18 19:01 | disposition left against medical advice (07) | DRG 894 ==
LOC: JER 22:56 → JERBED 01-18 00:44 → J8W 01-18 13:51
PROVIDERS: ADMIT Hospitalist; ATTEND Internal Medicine
PROC: XW033E5 Introduction of Remdesivir Anti-infective into Peripheral Vein, Percutaneous Approach, New Technology Group 5 (ICD-10-PCS; principal; 2022-01-18)
DX: U07.1 COVID-19 (principal); B20 Human immunodeficiency virus [HIV] disease; L97.919 Non-pressure chronic ulcer of unspecified part of right lower leg with unspecified severity; B19.20 Unspecified viral hepatitis C without hepatic coma; D64.9 Anemia, unspecified; F11.23 Opioid dependence with withdrawal; F17.210 Nicotine dependence, cigarettes, uncomplicated; J45.909 Unspecified asthma, uncomplicated; L02.415 Cutaneous abscess of right lower limb; L03.115 Cellulitis of right lower limb; L03.116 Cellulitis of left lower limb; R74.01 Elevation of levels of liver transaminase levels; F32.A Depression, unspecified; L02.414 Cutaneous abscess of left upper limb
CPT/HCPCS: 36415; 71045-TC-FY; 73090-TC-LT-FY; 80053; 82728; 83540; 83550; 83735; 84100; 85025; 85045; 85610; 85730; 86359; 86360; 86780; 86900; 87040; 87070; 87186; 87205; 87902; 93005; 93010; 99281-25; C9399; C9803-CS; U0003; U0005